=== PATIENT | female | born 1970 | race African-American/Black ===

== ENCOUNTER 2019-03-12 13:48 | Emergency (ER) | payer MEDICARE ==
[2019-03-12 14:24] VITALS: BP 125/81
--- NOTE | 2019-03-12 14:36 | ER Document Report ---
ED Medical Screen (RME) - General Chief Complaint: Nausea/Vomiting Stated Complaint: NAUSEA Time Seen by Provider: 03/12/19 14:35 Primary Care Provider: ED [facility] [Primary Care Provider] - Follow up as needed Mode of Arrival: Wheelchair Information source: Patient Notes: 48-year-old female presented to ED for complaint of headache and abdominal pain level 5 out of 5 with nausea and vomiting. She states she has had the symptoms for 3 days she vomited once today and twice yesterday. She states she has a history of diabetes blood pressure cholesterol seizures reflux and migraines. Patient is alert oriented respirations regular and unlabored speaking in full sentences. She states she does smoke half pack a day and also has a card for medical marijuana which she uses. I have greeted and performed a rapid initial assessment of this patient. A comprehensive ED assessment and evaluation of the patient, analysis of test results and completion of medical decision making process will be conducted by an additional ED providers. Dictation of this chart was performed using voice recognition software; therefore, there may be some unintended grammatical errors. TRAVEL OUTSIDE OF THE [place] IN LAST 30 DAYS: No - Related Data Allergies/Adverse Reactions: peanut Allergy (Verified 03/12/19 13:55) oxycodone HCl [From Percocet] Adverse Reaction (Mild, Verified 03/12/19 13:55) Past Medical History - Past Medical History Cardiac Medical History: Reports: Hx Hypertension Neurological Medical History: Reports: Hx Migraine Past Surgical History: Reports: Hx Section - x2, Hx Cholecystectomy, Hx Hysterectomy - Immunizations Hx Diphtheria, Pertussis, Tetanus Vaccination: Yes Physical Exam - Vital signs Vitals: Temp Pulse Resp BP Pulse Ox 98.6 F 103 H 16 125/81 98 03/12/19 14:17 03/12/19 14:17 03/12/19 14:17 03/12/19 14:17 03/12/19 14:17 Course - Vital Signs Vital signs: Temp Pulse Resp BP Pulse Ox 98.6 F 103 H 16 125/81 98 03/12/19 14:17 03/12/19 14:17 03/12/19 14:17 03/12/19 14:17 03/12/19 14:17 Doctor's Discharge - Discharge Referrals: ED PAL[facility] [Primary Care Provider] - Follow up as needed
[2019-03-12] MEDS ORDERED: NORMAL SALINE 1000 ML 1,000 ML IV ONE (14:37)
[2019-03-12] MEDS ORDERED: ONDANSETRON HCL INJ/PF 4 MG/2 ML SDV IV ONE (14:37)
[2019-03-12 14:58] LABS: ABSOLUTE LYMPHOCYTES (AUTO) 2.2 10^3/uL (0.5-4.7); ABSOLUTE MONOCYTES (AUTO) 0.5 10^3/uL (0.1-1.4); ABSOLUTE NEUT (AUTO) 4.5 10^3/uL (1.7-8.2); BASOPHILS % (AUTO) 0.6 % (0-2); EOSINOPHILS % (AUTO) 0.4 % (0-6); HEMATOCRIT 43.9 % (36.0-47.0); HEMOGLOBIN 14.3 g/dL (12.0-15.5); LYMPHOCYTES % (AUTO) 30.7 % (13-45); MEAN CORPUSCULAR HEMOGLOBIN 27.5 pg (27.0-33.4); MEAN CORPUSCULAR HGB CONC 32.5 g/dL (32.0-36.0); MEAN CORPUSCULAR VOLUME 85 fl (80-97); MONOCYTES % (AUTO) 6.3 % (3-13); PLATELET COUNT 237 10^3/uL (150-450); RED BLOOD COUNT 5.18 10^6/uL (3.72-5.28); RED CELL DISTRIBUTION WIDTH 13.3 % (11.5-14.0); TOTAL CELLS COUNTED % (AUTO) 100 %; WHITE BLOOD COUNT 7.3 10^3/uL (4.0-10.5)
[2019-03-12 15:07] LABS: ALANINE AMINOTRANSFERASE 18 U/L (9-52); ALBUMIN 4.5 g/dL (3.5-5.0); ALKALINE PHOSPHATASE 118 U/L (38-126); ANION GAP 17 (5-19); ASPARTATE AMINO TRANSFERASE 18 U/L (14-36); BILIRUBIN,DIRECT 0.5 mg/dL (0.0-0.4); BILIRUBIN,TOTAL 0.7 mg/dL (0.2-1.3); BLOOD UREA NITROGEN 9 mg/dL (7-20); CALCIUM 9.7 mg/dL (8.4-10.2); CARBON DIOXIDE 21 mmol/L (22-30); CHLORIDE 91 mmol/L (98-107); LIPASE 45.1 U/L (23-300); POTASSIUM 4.8 mmol/L (3.6-5.0); SODIUM 128.7 mmol/L (137-145); TOTAL PROTEIN 7.4 g/dL (6.3-8.2)
[2019-03-12 15:16] LABS: GLUCOSE 421 mg/dL (75-110)
[2019-03-12 15:35] LABS: VENOUS BLOOD BASE EXCESS -2.7 mmol/L; VENOUS BLOOD HCO3 22.8 mmol/L (20-32); VENOUS BLOOD PCO2 41.8 mmHg (35-63); VENOUS BLOOD PH 7.35 (7.30-7.42)
[2019-03-12 15:42] LABS: APPEARANCE,URINE CLEAR; BILIRUBIN,URINE NEGATIVE (NEGATIVE); COLOR,URINE YELLOW; GLUCOSE, URINE >=500 mg/dL (NEGATIVE); KETONES,URINE 80 mg/dL (NEGATIVE); LEUKOCYTE ESTERASE,URINE NEGATIVE (NEGATIVE); NITRITE,URINE NEGATIVE (NEGATIVE); PROTEIN,URINE NEGATIVE (NEGATIVE); URINE SPECIFIC GRAVITY 1.033; UROBILINOGEN,URINE NEGATIVE mg/dL (<2.0)
[2019-03-12] MEDS ORDERED: ONDANSETRON ODT 4 MG TAB (6 TAB/ER DISP) PO PRN (20:13)
--- NOTE | 2019-03-12 20:17 | ER Document Report ---
Addendum entered and electronically signed by ELVIRA STYLES PA 03/13/19 06:03: Physical Exam - Vital signs Vitals: Temp Pulse Resp BP Pulse Ox 98.6 F 103 H 16 125/81 98 03/12/19 14:17 03/12/19 14:17 03/12/19 14:17 03/12/19 14:17 03/12/19 14:17 - Notes Notes: GENERAL: Thin but well appearing. HEAD: Normocephalic, atraumatic. EYES: Pupils equal, round, and reactive to light. Extraocular movements intact. ENT: Oral mucosa moist, tongue midline. Oropharynx unremarkable. Airway patent. NECK: Full range of motion. Supple. Trachea midline. LUNGS: Clear to auscultation bilaterally, no wheezes, rales, or rhonchi. No respiratory distress. HEART: Regular rate and rhythm. No murmur ABDOMEN: Soft, non-tender. Non-distended. Bowel sounds present in all 4 quadrants. GENITOURINARY: Deferred EXTREMITIES: Moves all 4 extremities spontaneously. No edema, normal radial and dorsalis pedis pulses bilaterally. No cyanosis. BACK: no cervical, thoracic, lumbar midline tenderness. No saddle anesthesia, normal distal neurovascular exam. Moves all extremities in full range of motion. NEUROLOGICAL: Alert and oriented x3. Normal speech. Cranial nerves II through XII grossly intact. PSYCH: Normal affect, normal mood. SKIN: Warm, dry, normal turgor. No rashes or lesions noted. A lot of sagging skin. Original Note: ED General - General Chief Complaint: Nausea/Vomiting Stated Complaint: NAUSEA Time Seen by Provider: 03/12/19 14:35 Primary Care Provider: ED PALUMBO [NO LOCAL MD] - Follow up as needed Mode of Arrival: Wheelchair Notes: Patient is a 48-year-old female that comes to the emergency department with chief complaint of nausea, vomiting, dehydration, abdominal pain. She denies fever, diarrhea, flank pain, chest pain, current headache. She states she has had trouble with vomiting over the past 3 days, vomited once today, twice yesterday. She states she has a frequent problem with vomiting. She reports a history of Type II diabetes, HLD, seizures, GERD, and uses PRN medical marijuana reportedly. She smokes. She has a history of cholecystectomy and hysterectomy. TRAVEL OUTSIDE OF THE [place] IN LAST 30 DAYS: No - Related Data Allergies/Adverse Reactions: peanut Allergy (Verified 03/12/19 13:55) oxycodone HCl [From Percocet] Adverse Reaction (Mild, Verified 03/12/19 13:55) Past Medical History - General Information source: Patient - Social History Smoking Status: Current Every Day Smoker Chew tobacco use (# tins/day): No Frequency of alcohol use: None Drug Abuse: Marijuana Lives with: Family Family History: Reviewed & Not Pertinent Patient has suicidal ideation: No Patient has homicidal ideation: No - Past Medical History Cardiac Medical History: Reports: Hx Hypercholesterolemia, Hx Hypertension Neurological Medical History: Reports: Hx Migraine Endocrine Medical History: Reports: Hx Diabetes Mellitus Type 2 Renal/ Medical History: Denies: Hx Peritoneal Dialysis GI Medical History: Reports: Hx Gastroesophageal Reflux Disease Past Surgical History: Reports: Hx Section - x2, Hx Cholecystectomy, Hx Hysterectomy - Immunizations Hx Diphtheria, Pertussis, Tetanus Vaccination: Yes Review of Systems - Review of Systems Constitutional: See HPI EENT: No symptoms reported Cardiovascular: No symptoms reported Respiratory: No symptoms reported Gastrointestinal: See HPI Genitourinary: No symptoms reported Female Genitourinary: No symptoms reported Musculoskeletal: No symptoms reported Skin: No symptoms reported Hematologic/Lymphatic: No symptoms reported Neurological/Psychological: No symptoms reported Physical Exam - Vital signs Vitals: Temp Pulse Resp BP Pulse Ox 98.6 F 103 H 16 125/81 98 03/12/19 14:17 03/12/19 14:17 03/12/19 14:17 03/12/19 14:17 03/12/19 14:17 - Notes Notes: Patient is very thin although she has sagging skin suggesting a lot of weight loss. She states that she has indeed lost a ton of weight but still is a diabetic. She states she is a type II diabetic. She has a nontender abdomen, she states she has been drinking fluids since she got here a few hours ago and received IV fluids. She states she feels great and she wants to leave. Course - Re-evaluation Re-evalutation: Patient is very thin although she has sagging skin suggesting a lot of weight loss. She states that she has indeed lost a ton of weight but still is a diabetic. She states she is a type II diabetic. She has a nontender abdomen, she states she has been drinking fluids since she got here a few hours ago and received IV fluids. She states she feels great and she wants to leave. CBC is unremarkable. Chemistry shows hyperglycemia with borderline bicarbonate, urinalysis shows ketones and elevated specific gravity, however the venous blood gas is normal. Somewhat borderline presentation overall. Sodium corrects to 136.4. She is not tachycardic or ill appearing. I recommended additional IV fluids and possibly even chemistry recheck but patient declines. She states she feels excellent, she is ready to leave, requests nausea medication and discharge. I did discuss her extreme weight loss and the concerns associated with this, she states she is following with outpatient providers, she states they have been aware of this, she states that she will follow-up and return if she worsens in any way. - Vital Signs Vital signs: Temp Pulse Resp BP Pulse Ox 98.6 F 103 H 16 125/81 98 03/12/19 14:17 03/12/19 14:17 03/12/19 14:17 03/12/19 14:17 03/12/19 14:17 - Laboratory Result Diagrams: 03/12/19 12:56 03/12/19 12:56 Laboratory results interpreted by me: 03/12/19 03/12/19 03/12/19 12:56 14:57 15:17 Sodium 128.7 L Chloride 91 L Carbon Dioxide 21 L Creatinine 0.32 L Glucose 421 H* POC Glucose 283 H Direct Bilirubin 0.5 H Urine Glucose (UA) >=500 H Urine Ketones 80 H Discharge - Discharge Clinical Impression: Dehydration Vomiting Qualifiers: Vomiting type: unspecified Vomiting Intractability: non-intractable Nausea presence: with nausea Qualified Code(s): R11.2 - Nausea with vomiting, unspecified Abdominal pain Qualifiers: Abdominal location: generalized Qualified Code(s): R10.84 - Generalized abdominal pain Condition: Stable Disposition: HOME, SELF-CARE Additional Instructions: Continue to rehydrate at home. Take the nausea medication as prescribed, the famotidine can help recovery as well, start with bland food. Follow-up with primary care. Return if you worsen including returned vomiting, returned abdominal pain, fever/chills, or if something is not right. Prescriptions: Promethazine HCl [Phenergan 25 mg Tablet] 25 mg PO Q6H PRN #15 tablet PRN Reason: Referrals: LOCALMN,NO [NO LOCAL MD] - Follow up as needed
== END 2019-03-12 20:33 | disposition home or self-care (01) ==
LOC: ER 13:48
DX: E86.0 Dehydration (principal); R11.2 Nausea with vomiting, unspecified; R10.84 Generalized abdominal pain; F17.200 Nicotine dependence, unspecified, uncomplicated; E78.00 Pure hypercholesterolemia, unspecified; I10 Essential (primary) hypertension; E11.9 Type 2 diabetes mellitus without complications; Z88.6 Allergy status to analgesic agent; Z91.010 Allergy to peanuts; Z90.49 Acquired absence of other specified parts of digestive tract; Z90.710 Acquired absence of both cervix and uterus
CPT/HCPCS: 99283; 96361; 96374; 36415; 82962; 83690; 84703; 85025; 80053; 81001; 82803; J2405; J7030; A9270

== ENCOUNTER 2019-03-16 23:38 | Emergency (ER) | payer MEDICARE ==
--- NOTE | 2019-03-16 23:48 | ER Document Report ---
Addendum entered and electronically signed by DEANA BRISENO MD 03/17/19 17:55: Discharge - Discharge Clinical Impression: Hyperglycemia, Dehydration, Hyponatremia, Hypokalemia, Homicidal ideation Condition: Stable Disposition: HOME, SELF-CARE Additional Instructions: You have been evaluated both medical and behavioral health teams and been deemed appropriate for discharge. You are encouraged to follow-up with your outpatient mental health provider upon returning home to [place]. You are encouraged to follow mental health recommendations by your mental health team. DEPRESSION: Your evaluation reveals that you have mental depression. While symptoms may be vague, they often include disturbance of sleep, fatigue, loss of appetite, and general loss of interest in life. While depression may be a side effect of drugs, or a reaction to a major change in your life, many cases have no known cause. If depression is acute, and related to a major loss in your life, you can expect it to clear completely with time. If you have been depressed a long time, are prone to repeated bouts of depression or low mood, or have been thinking of suicide, get help. Depression can be treated with anti-depressant medication and counselling. Long-term depression will often take a few weeks to clear, even with appropriate medication. Follow-up care is important. HOMICIDAL IDEATION: Suicidal ideation is a common medical term for thoughts about harming others, which may be as detailed as a formulated plan, without the act itself. Although most people who experience homicidal ideation do not commit acts of harm to others, some go on to make attempts. The range of homicidal ideation varies greatly from fleeting to detailed planning, role playing, and unsuccessful attempts. Based upon your evaluation and discussion with you, we do not believe you are currently at risk to act upon your thoughts of side. You have agreed to return to the Emergency Department, at any time, if you feel inclined to act upon your homicidal thoughts. FOLLOW-UP CARE: If you have been referred to a physician for follow-up care, call the physicians office for an appointment as you were instructed or within the next two days. If you experience worsening or a significant change in your symptoms, notify the physician immediately or return to the Emergency Department at any time for re-evaluation. Patient says that her [id number] going to pick her up here tonight and they are driving back to [place] where she can get her insulin. Referrals: [facility] [Outside] - Follow up as needed Addendum entered and electronically signed by TODD BUTTERFIELD LCSWA 03/17/19 15:44: Discharge - Discharge Clinical Impression: Hyperglycemia, Dehydration, Hyponatremia, Hypokalemia, Homicidal ideation Condition: Stable Disposition: HOME, SELF-CARE Additional Instructions: You have been evaluated both medical and behavioral health teams and been deemed appropriate for discharge. You are encouraged to follow-up with your outpatient mental health provider upon returning home to [place]. You are encouraged to follow mental health recommendations by your mental health team. DEPRESSION: Your evaluation reveals that you have mental depression. While symptoms may be vague, they often include disturbance of sleep, fatigue, loss of appetite, and general loss of interest in life. While depression may be a side effect of drugs, or a reaction to a major change in your life, many cases have no known cause. If depression is acute, and related to a major loss in your life, you can expect it to clear completely with time. If you have been depressed a long time, are prone to repeated bouts of depression or low mood, or have been thinking of suicide, get help. Depression can be treated with anti-depressant medication and counselling. Long-term depression will often take a few weeks to clear, even with appropriate medication. Follow-up care is important. HOMICIDAL IDEATION: Suicidal ideation is a common medical term for thoughts about harming others, which may be as detailed as a formulated plan, without the act itself. Although most people who experience homicidal ideation do not commit acts of harm to others, some go on to make attempts. The range of homicidal ideation varies greatly from fleeting to detailed planning, role playing, and unsuccessful attempts. Based upon your evaluation and discussion with you, we do not believe you are currently at risk to act upon your thoughts of side. You have agreed to return to the Emergency Department, at any time, if you feel inclined to act upon your homicidal thoughts. FOLLOW-UP CARE: If you have been referred to a physician for follow-up care, call the physicians office for an appointment as you were instructed or within the next two days. If you experience worsening or a significant change in your symptoms, notify the physician immediately or return to the Emergency Department at any time for re-evaluation. Referrals: [facility] [Outside] - Follow up as needed Original Note: ED General - General Stated Complaint: PSYCH ISSUES Time Seen by Provider: 03/16/19 23:47 Notes: Patient is a 48-year-old female with diabetes mellitus that presents to the emergency department for chief complaint of homicidal ideations and hearing voices. Patient apparently has been living with her son, after coming down here for about a month, she apparently states that she wants to kill her son, and thinks she may hurt her grandchildren. She states she came down here to help her son with the grandchildren about a month ago. She has not had her insulin since then, they forgot to bring it. She has been on long-acting insulin, as well as sliding scale insulin with meals. She denies any suicidal ideations, denies any visual hallucinations. At this time she had some mild nausea but denies having any headache, chest pain, shortness of breath or difficulty breathing. She states that she did not eat all day long, because her son has not been feeding her. Past Medical History: Diabetes mellitus, hypertension, bipolar disorder, seizure disorder Past Surgical History: , cholecystectomy Social History: Admits to smoking cigarettes, denies alcohol or drug use. Family History: Reviewed and noncontributory for presenting illness Allergies: Reviewed, see documented allergy list. REVIEW OF SYSTEMS: Other than noted above, the 12 point review of systems was reviewed with the patient and were negative, all pertinent findings are included in the HPI. PHYSICAL EXAMINATION: Vital signs reviewed, nursing noted reviewed. GENERAL: Patient appears mildly dehydrated, no acute distress, but is mildly agitated HEAD: Atraumatic, normocephalic. EYES: Eyes appear normal, extraocular movements intact, sclera anicteric, conjunctiva are normal. ENT: nares patent, oropharynx clear without exudates. Moist mucous membranes. NECK: Normal range of motion, supple without lymphadenopathy LUNGS: Breath sounds clear to auscultation bilaterally and equal. No wheezes rales or rhonchi. HEART: Heart rate mildly tachycardic, regular rhythm, no audible murmur. ABDOMEN: Soft, nontender, normoactive bowel sounds. No rebound, guarding, or rigidity. No masses appreciated. EXTREMITIES: Nontender, good range of motion, no pitting or edema. NEUROLOGICAL: No focal neurological deficits. Moves all extremities spontaneously Motor and sensory grossly intact on exam. PSYCH: Patient is agitated on exam, appears annoyed, with her son, but she is answering questions appropriately, is having auditory hallucinations and hearing voices. SKIN: Warm, Dry, normal turgor, no rashes or lesions noted on exposed skin TRAVEL OUTSIDE OF THE [place] IN LAST 30 DAYS: No - Related Data Allergies/Adverse Reactions: peanut Allergy (Verified 03/12/19 13:55) oxycodone HCl [From Percocet] Adverse Reaction (Mild, Verified 03/12/19 13:55) Past Medical History - Social History Smoking Status: Current Every Day Smoker Family History: Reviewed & Not Pertinent - Past Medical History Cardiac Medical History: Reports: Hx Hypercholesterolemia, Hx Hypertension Neurological Medical History: Reports: Hx Migraine Endocrine Medical History: Reports: Hx Diabetes Mellitus Type 2 Renal/ Medical History: Denies: Hx Peritoneal Dialysis GI Medical History: Reports: Hx Gastroesophageal Reflux Disease Past Surgical History: Reports: Hx Section - x2, Hx Cholecystectomy, Hx Hysterectomy - Immunizations Hx Diphtheria, Pertussis, Tetanus Vaccination: Yes Physical Exam - Vital signs Vitals: Temp Pulse Resp BP Pulse Ox 98.5 F 106 H 19 133/79 H 96 03/17/19 00:34 03/17/19 00:34 03/17/19 00:34 03/17/19 00:34 03/17/19 00:34 Course - Re-evaluation Re-evalutation: Patient seen and examined vital signs reviewed. Laboratory data and/or imaging were ordered as appropriate for the patient's presenting symptoms and complaint, with consideration of any critical or life threatening conditions that may be associated with their obtained history and exam as noted above. Patient was treated with IV fluids, 2 L, her glucose was elevated, greater than 400, she had a borderline anion gap, and low bicarb, was restarted on IV insulin given 6 units, and started on a long-acting Lantus, 30 units, she states she was on 40 units of the long-acting previously. After treatment, the patient's BMP was repeated, anion gap completely closed, potassium was somewhat lower at 3.1, given replacement, at this point I feel the patient is medically cleared, to be seen for psychiatric evaluation for her homicidal ideation and hearing voices, she apparently lives in [place] previously to coming down here in January, and would like to return there. The patient was re-evaluated and was stable and much improved. Evaluation was most consistent with hyperglycemia, uncontrolled diabetes mellitus, homicidal ideation, and auditory hallucinations *Note is created using voice recognition software and may contain spelling, syntax or grammatical errors. Laboratory 03/16/19 03/16/19 03/16/19 23:20 23:20 23:45 WBC 8.6 RBC 4.77 Hgb 13.3 Hct 40.7 MCV 86 MCH 27.8 MCHC 32.5 RDW 13.3 Plt Count 251 Seg Neutrophils % 60.0 Lymphocytes % 32.6 Monocytes % 6.3 Eosinophils % 0.8 Basophils % 0.3 Absolute Neutrophils 5.1 Absolute Lymphocytes 2.8 Absolute Monocytes 0.5 Absolute Eosinophils 0.1 Absolute Basophils 0.0 VBG pH 7.34 VBG pCO2 39.3 VBG HCO3 20.7 VBG Base Excess -4.6 Sodium 128.6 L Potassium 3.6 Chloride 90 L Carbon Dioxide 20 L Anion Gap 19 BUN 8 Creatinine 0.48 L Est GFR ( Amer) > 60 Est GFR (Non-Af Amer) > 60 Glucose 524 H* POC Glucose Calcium 9.7 Total Bilirubin 0.9 Direct Bilirubin 0.5 H Neonat Total Bilirubin Not Reportable Neonat Direct Bilirubin Not Reportable Neonat Indirect Bili Not Reportable AST 14 ALT 17 Alkaline Phosphatase 107 Total Protein 6.8 Albumin 4.3 Urine Color Urine Appearance Urine pH Ur Specific [place] Urine Protein Urine Glucose (UA) Urine Ketones Urine Blood Urine Nitrite Urine Bilirubin Urine Urobilinogen Ur Leukocyte Esterase Urine WBC (Auto) Urine RBC (Auto) U Hyaline Cast (Auto) Squamous Epi Cells Auto Urine Mucus (Auto) Urine Ascorbic Acid Salicylates < 1.0 L Urine Opiates Screen Urine Methadone Screen Acetaminophen < 10 L Ur Barbiturates Screen Ur Phencyclidine Scrn Ur Amphetamines Screen U Benzodiazepines Scrn Urine Cocaine Screen U Marijuana (THC) Screen Serum Alcohol < 10 03/17/19 03/17/19 03/17/19 00:06 00:06 03:29 WBC RBC Hgb Hct MCV MCH MCHC RDW Plt Count Seg Neutrophils % Lymphocytes % Monocytes % Eosinophils % Basophils % Absolute Neutrophils Absolute Lymphocytes Absolute Monocytes Absolute Eosinophils Absolute Basophils VBG pH VBG pCO2 VBG HCO3 VBG Base Excess Sodium Potassium Chloride Carbon Dioxide Anion Gap BUN Creatinine Est GFR ( Amer) Est GFR (Non-Af Amer) Glucose POC Glucose 279 H Calcium Total Bilirubin Direct Bilirubin Neonat Total Bilirubin Neonat Direct Bilirubin Neonat Indirect Bili AST ALT Alkaline Phosphatase Total Protein Albumin Urine Color YELLOW Urine Appearance SLIGHTLY-CLOUDY Urine pH 7.0 Ur Specific [place] 1.015 Urine Protein 30 H Urine Glucose (UA) >=500 H Urine Ketones 80 H Urine Blood NEGATIVE Urine Nitrite NEGATIVE Urine Bilirubin NEGATIVE Urine Urobilinogen NEGATIVE Ur Leukocyte Esterase NEGATIVE Urine WBC (Auto) 5 Urine RBC (Auto) 1 U Hyaline Cast (Auto) 14 Squamous Epi Cells Auto 2 Urine Mucus (Auto) RARE Urine Ascorbic Acid NEGATIVE Salicylates Urine Opiates Screen NEGATIVE Urine Methadone Screen NEGATIVE Acetaminophen Ur Barbiturates Screen NEGATIVE Ur Phencyclidine Scrn NEGATIVE Ur Amphetamines Screen NEGATIVE U Benzodiazepines Scrn NEGATIVE Urine Cocaine Screen NEGATIVE U Marijuana (THC) Screen UNCONFIRMED POSITIVE Serum Alcohol 03/17/19 03:40 WBC RBC Hgb Hct MCV MCH MCHC RDW Plt Count Seg Neutrophils % Lymphocytes % Monocytes % Eosinophils % Basophils % Absolute Neutrophils Absolute Lymphocytes Absolute Monocytes Absolute Eosinophils Absolute Basophils VBG pH VBG pCO2 VBG HCO3 VBG Base Excess Sodium 134.8 L Potassium 3.1 L Chloride 99 Carbon Dioxide 28 Anion Gap 8 BUN 6 L Creatinine 0.33 L Est GFR ( Amer) > 60 Est GFR (Non-Af Amer) > 60 Glucose 232 H POC Glucose Calcium 8.7 Total Bilirubin Direct Bilirubin Neonat Total Bilirubin Neonat Direct Bilirubin Neonat Indirect Bili AST ALT Alkaline Phosphatase Total Protein Albumin Urine Color Urine Appearance Urine pH Ur Specific [place] Urine Protein Urine Glucose (UA) Urine Ketones Urine Blood Urine Nitrite Urine Bilirubin Urine Urobilinogen Ur Leukocyte Esterase Urine WBC (Auto) Urine RBC (Auto) U Hyaline Cast (Auto) Squamous Epi Cells Auto Urine Mucus (Auto) Urine Ascorbic Acid Salicylates Urine Opiates Screen Urine Methadone Screen Acetaminophen Ur Barbiturates Screen Ur Phencyclidine Scrn Ur Amphetamines Screen U Benzodiazepines Scrn Urine Cocaine Screen U Marijuana (THC) Screen Serum Alcohol - Vital Signs Vital signs: Temp Pulse Resp BP Pulse Ox 98.5 F 106 H 19 133/79 H 96 03/17/19 00:34 03/17/19 00:34 03/17/19 00:34 03/17/19 00:34 03/17/19 00:34 - Laboratory Result Diagrams: 03/16/19 23:20 03/17/19 03:40 Laboratory results interpreted by me: 03/16/19 03/17/19 03/17/19 23:20 00:06 03:29 Sodium 128.6 L Potassium Chloride 90 L Carbon Dioxide 20 L BUN Creatinine 0.48 L Glucose 524 H* POC Glucose 279 H Direct Bilirubin 0.5 H Urine Protein 30 H Urine Glucose (UA) >=500 H Urine Ketones 80 H Salicylates < 1.0 L Acetaminophen < 10 L 03/17/19 03:40 Sodium 134.8 L Potassium 3.1 L Chloride Carbon Dioxide BUN 6 L Creatinine 0.33 L Glucose 232 H POC Glucose Direct Bilirubin Urine Protein Urine Glucose (UA) Urine Ketones Salicylates Acetaminophen - EKG Interpretation by Me Additional EKG results interpreted by me: EKG demonstrates sinus tachycardia with a ventricular rate of 106 bpm, normal axis, QTC prolonged at 494 ms, T wave inversion noted in lead aVL, nonspecific, no evidence of acute ischemia in this EKG. No prior for comparison. Discharge - Discharge Clinical Impression: Hyperglycemia, Dehydration, Homicidal ideation, Hyponatremia, Hypokalemia Condition: Stable Disposition: PSYCH HOSP/UNIT
[2019-03-16 23:55] LABS: VENOUS BLOOD BASE EXCESS -4.6 mmol/L; VENOUS BLOOD HCO3 20.7 mmol/L (20-32); VENOUS BLOOD PCO2 39.3 mmHg (35-63); VENOUS BLOOD PH 7.34 (7.30-7.42)
[2019-03-16 23:57] LABS: ABSOLUTE EOSINOPHILS # (AUTO) 0.1 10^3/uL (0.0-0.6); ABSOLUTE LYMPHOCYTES (AUTO) 2.8 10^3/uL (0.5-4.7); ABSOLUTE MONOCYTES (AUTO) 0.5 10^3/uL (0.1-1.4); ABSOLUTE NEUT (AUTO) 5.1 10^3/uL (1.7-8.2); BASOPHILS % (AUTO) 0.3 % (0-2); EOSINOPHILS % (AUTO) 0.8 % (0-6); HEMATOCRIT 40.7 % (36.0-47.0); HEMOGLOBIN 13.3 g/dL (12.0-15.5); LYMPHOCYTES % (AUTO) 32.6 % (13-45); MEAN CORPUSCULAR HEMOGLOBIN 27.8 pg (27.0-33.4); MEAN CORPUSCULAR HGB CONC 32.5 g/dL (32.0-36.0); MEAN CORPUSCULAR VOLUME 86 fl (80-97); MONOCYTES % (AUTO) 6.3 % (3-13); PLATELET COUNT 251 10^3/uL (150-450); RED BLOOD COUNT 4.77 10^6/uL (3.72-5.28); RED CELL DISTRIBUTION WIDTH 13.3 % (11.5-14.0); TOTAL CELLS COUNTED % (AUTO) 100 %; WHITE BLOOD COUNT 8.6 10^3/uL (4.0-10.5)
[2019-03-17 00:15] LABS: ALANINE AMINOTRANSFERASE 17 U/L (9-52); ALBUMIN 4.3 g/dL (3.5-5.0); ALKALINE PHOSPHATASE 107 U/L (38-126); ASPARTATE AMINO TRANSFERASE 14 U/L (14-36); BILIRUBIN,DIRECT 0.5 mg/dL (0.0-0.4); BILIRUBIN,TOTAL 0.9 mg/dL (0.2-1.3); BLOOD UREA NITROGEN 8 mg/dL (7-20); CALCIUM 9.7 mg/dL (8.4-10.2); POTASSIUM 3.6 mmol/L (3.6-5.0); TOTAL PROTEIN 6.8 g/dL (6.3-8.2)
[2019-03-17 00:19] LABS: CARBON DIOXIDE 20 mmol/L (22-30); CHLORIDE 90 mmol/L (98-107); SODIUM 128.6 mmol/L (137-145)
[2019-03-17 00:21] LABS: ACETAMINOPHEN < 10 ug/mL (10-30); ALCOHOL < 10 mg/dL (NONE DETECTED); SALICYLATE < 1.0 mg/dL (2.0-20.0)
[2019-03-17 00:22] LABS: ANION GAP 19 (5-19)
[2019-03-17 00:23] LABS: GLUCOSE 524 mg/dL (75-110)
[2019-03-17 00:31] LABS: APPEARANCE,URINE SLIGHTLY-CLOUDY; BILIRUBIN,URINE NEGATIVE (NEGATIVE); COLOR,URINE YELLOW; GLUCOSE, URINE >=500 mg/dL (NEGATIVE); KETONES,URINE 80 mg/dL (NEGATIVE); LEUKOCYTE ESTERASE,URINE NEGATIVE (NEGATIVE); NITRITE,URINE NEGATIVE (NEGATIVE); PROTEIN,URINE 30 mg/dL (NEGATIVE); URINE SPECIFIC GRAVITY 1.015; UROBILINOGEN,URINE NEGATIVE mg/dL (<2.0)
[2019-03-17 00:41] LABS: URINE AMPHETAMINES SCREEN NEGATIVE; URINE BARBITURATES SCREEN NEGATIVE; URINE BENZODIAZEPINES SCREEN NEGATIVE; URINE METHADONE SCREEN NEGATIVE; URINE PHENCYCLIDINE SCREEN NEGATIVE
[2019-03-17 00:42] LABS: URINE MARIJUANA (THC) SCREEN UNCONFIRMED POSITIVE
[2019-03-17 00:43] LABS: URINE COCAINE SCREEN NEGATIVE
[2019-03-17] MEDS ORDERED: INSULIN REG, HUMAN 100 UNIT/ML 3 ML VIAL (PYX) IV ONE ×2 (00:44→02:03)
[2019-03-17] MEDS ORDERED: RINGERS SOLUTION,LACTATED 1,000 ML IV ONE ×2 (00:44→02:21)
[2019-03-17] MEDS ORDERED: INSULIN GLARGINE,HUM.REC.ANLOG 1,000 UNIT/10 ML VIAL SUBCUT ONE ×2 (00:45→02:03)
[2019-03-17] MEDS ORDERED: ONDANSETRON HCL INJ/PF 4 MG/2 ML SDV IV ONE (03:06)
[2019-03-17 04:10] LABS: ANION GAP 8 (5-19); BLOOD UREA NITROGEN 6 mg/dL (7-20); CALCIUM 8.7 mg/dL (8.4-10.2); CARBON DIOXIDE 28 mmol/L (22-30); CHLORIDE 99 mmol/L (98-107); GLUCOSE 232 mg/dL (75-110); POTASSIUM 3.1 mmol/L (3.6-5.0); SODIUM 134.8 mmol/L (137-145)
[2019-03-17] MEDS ORDERED: POTASSIUM CHLORIDE 10 MEQ CAPSULE.ER PO ONE (04:17)
--- NOTE | 2019-03-17 09:55 | ER Document Report ---
Doctor's Note Notes: 03/17/19 09:54 Rounds: Chart reviewed and patient interviewed. Patient says that she is been hearing voices and she is having homicidal thoughts towards her son. Patient traveled here from [place] about 3 or 4 weeks ago. She forgot to bring her insulin when she came here. Blood sugars have been running high. Lab studies showed blood sugars in the 400-500 range, but down to 200 after treatment. Potassium is low and patient is getting some potassium. Other labs show positive for marijuana. Vital signs are all normal. Patient appears to be medically stable for transfer or discharge. Tom Ramirez MD
--- NOTE | 2019-03-17 15:41 | PSYCHOLOGICAL NOTE ---
Psych Note - Psych Note Date seen by psych provider: 03/17/19 Time seen by psych provider: 09:30 Psych Note: Reason for Consult: Homicidal ideation Consent permissions: Patient's [id number], Lori Del Rio [phone] Patient is a 48-year-old female with diabetes mellitus that presents to the emergency department for chief complaint of homicidal ideations and hearing voices. Unspecified bipolar and related disorder per history provided by patient No medication recommendations at this time Impression\plan: Patient is cleared from acute psychiatric services. Patient is not demonstrating any behaviors of responding to internal stimuli i.e. organized and linear thought processes, good eye contact, and normal conversational speech. Patient disclosed that she came down to [facility] to assist her son during his time of visitation with his children. She reports discord between her and her son which resulted in her having thoughts of harming him; no plan means or intent. She disclosed that she has a history of violent tendencies and used the local resources to ensure everyone's safety. She disclosed that she is from [place] and has a mental health team there. She admits that the recommendation from the team was not to come down to [place], [place]; however, she felt that she needed to to help her son. Patient plans to return immediately to [place] upon discharge and confirms her [id number] is currently in route. This was confirmed by the behavioral health team and approximate ETA is 8-9 PM tonight. Patient is recommended to follow-up with her outpatient mental health provider in [place] and continue taking her home medications. Clinician conducted psychoeducation on the importance of following mental health recommendations. Dr. Gr was consulted to care management of this patient; attending physicians in agreement with recommendations and disposition.
--- NOTE | 2019-03-17 17:53 | EKG REPORT ---
SEVERITY:- ABNORMAL ECG - SINUS TACHYCARDIA LINN, CONSIDER BIATRIAL ABNORMALITIES BORDERLINE T ABNORMALITIES, ANT-LAT LEADS BORDERLINE PROLONGED QT INTERVAL : Confirmed by: Ezequiel Billingsley 17-Mar-2019 17:52:30
[2019-03-17] MEDS ORDERED: DEXTROSE 40% GEL 15 GM TUBE PO PRN (18:00)
[2019-03-17] MEDS ORDERED: DEXTROSE 40% GEL 15 GM TUBE X 2 PO PRN (18:00)
[2019-03-17] MEDS ORDERED: DEXTROSE 50%-WATER SYRINGE 25 GM/50 ML DOSE IV PRN (18:00)
[2019-03-17] MEDS ORDERED: DEXTROSE 50%-WATER SYRINGE 12.5 GM/25 ML DOSE IV PRN (18:00)
[2019-03-17] MEDS ORDERED: GLUCAGON,HUMAN RECOMB 1 MG INJ IM PRN (18:00)
[2019-03-17] MEDS ORDERED: INSULIN LISPRO 100 UNIT/ML 3 ML VIAL SUBCUT SCH (19:00)
[2019-03-18 01:48] VITALS: BP 168/100
== END 2019-03-17 21:30 | disposition home or self-care (01) ==
LOC: ER 23:38
DX: R45.850 Homicidal ideations (principal); E11.65 Type 2 diabetes mellitus with hyperglycemia; T38.3X6A Underdosing of insulin and oral hypoglycemic [antidiabetic] drugs, initial encounter; Z91.128 Patient's intentional underdosing of medication regimen for other reason; Z91.14 Patient's other noncompliance with medication regimen; E87.1 Hypo-osmolality and hyponatremia; E87.6 Hypokalemia; E86.0 Dehydration; R44.0 Auditory hallucinations; I10 Essential (primary) hypertension; R11.0 Nausea; F17.210 Nicotine dependence, cigarettes, uncomplicated; R00.0 Tachycardia, unspecified; Z91.010 Allergy to peanuts
CPT/HCPCS: 93005; 99285; 96361; 96374; 36415; 82962; 80307 ×4; 85025; 80048; 80053; 81001; 82803; 93010; A9270 ×4; J2405; J7120; J1815

== ENCOUNTER 2019-03-18 11:11 | Emergency (ER) | payer MEDICARE ==
[2019-03-18] MEDS ORDERED: NALOXONE HCL INJ/PF 0.4 MG/1 ML SDV ONE (11:23)
[2019-03-18] MEDS ORDERED: NALOXONE HCL INJ 2 MG/2 ML DISP.SYRIN ONE ×2 (11:27→11:33)
[2019-03-18] MEDS ORDERED: NORMAL SALINE 1000 ML 1,000 ML IV ONE (11:44)
--- NOTE | 2019-03-18 11:47 | ER Document Report ---
Addendum entered and electronically signed by DEANA BRISENO MD 03/18/19 14:30: Discharge - Discharge Clinical Impression: BEHAVIOURAL EVENT Hypotension Qualifiers: Hypotension type: other hypotension type Qualified Code(s): I95.89 - Other hypotension Condition: Stable Disposition: HOME, SELF-CARE Additional Instructions: You have been evaluated by both medical and behavioral health teams and been deemed appropriate for discharge. You are highly encouraged to follow-up with your outpatient mental health provider in [place] in therapeutic services such as DBT or CBT to help you interpret your environment, build positive coping skills, and understand your triggers. AT ANY TIME, IF YOUR SYMPTOMS CHANGE SIGNIFICANTLY OR WORSEN OR YOU DEVELOP NEW SYMPTOMS, RETURN TO THE EMERGENCY DEPARTMENT IMMEDIATELY FOR RE-EVALUATION. Referrals: [facility] [Outside] - Follow up as needed Addendum entered and electronically signed by TODD BUTTERFIELD LCSWA 03/18/19 14:23: Discharge - Discharge Clinical Impression: BEHAVIOURAL EVENT Hypotension Qualifiers: Hypotension type: other hypotension type Qualified Code(s): I95.89 - Other hypotension Clinical Impression: (Ruled Out): Altered mental status Condition: Stable Disposition: HOME, SELF-CARE Additional Instructions: You have been evaluated by both medical and behavioral health teams and been deemed appropriate for discharge. You are highly encouraged to follow-up with your outpatient mental health provider in [place] in therapeutic services such as DBT or CBT to help you interpret your environment, build positive coping skills, and understand your triggers. AT ANY TIME, IF YOUR SYMPTOMS CHANGE SIGNIFICANTLY OR WORSEN OR YOU DEVELOP NEW SYMPTOMS, RETURN TO THE EMERGENCY DEPARTMENT IMMEDIATELY FOR RE-EVALUATION. Referrals: [facility] [Outside] - Follow up as needed Original Note: ED General - General Stated Complaint: WEAKNESS Time Seen by Provider: 03/18/19 11:41 TRAVEL OUTSIDE OF THE [place] IN LAST 30 DAYS: No - HPI Notes: Patient is a 48-year-old female that presents to the emergency department for chief complaint of mental status change. Patient presented by EMS from her home. EMS states that she was sitting in the front seat of a police car about to be arrested for a felony warrant when she started to act abnormally. EMS called by police. EMS states she was awake and conversational when he presented to the scene but started to become more sleepy. [id number] glucose was 332. They states she had a blood pressure of 80s systolic initially which did normalize after 500 mL normal saline bolus prior to arrival. Patient was reportedly just discharged from this facility. She is somnolent and will only tell me that she remembers sitting in a car. She does not know why she is at the hospital and is providing minimal HPI. Per EMS there was no witnessed seizure or trauma. Past Medical History: Diabetes mellitus, hypertension, bipolar disorder, seizure disorder Past Surgical History: , cholecystectomy Social History: Admits to smoking cigarettes, denies alcohol or drug use. Family History: Reviewed and noncontributory for presenting illness Allergies: Reviewed, see documented allergy list. REVIEW OF SYSTEMS: Unable to obtain because of acuity of condition PHYSICAL EXAMINATION: Vital signs reviewed, nursing noted reviewed. GENERAL: Somnolent, thin HEAD: Atraumatic, normocephalic. EYES: 1+ pupils bilaterally minimally responsive to light, symmetric. extraocular movements intact, sclera anicteric, conjunctiva are normal. ENT: nares patent, oropharynx clear without exudates. Dry mucous membranes. NECK: Normal range of motion, supple without lymphadenopathy LUNGS: Bradypnic, shallow respirations, lung sounds clear to auscultation bilaterally HEART: Regular rate and rhythm without murmurs ABDOMEN: Soft, no apparent tenderness. No rebound, guarding, or rigidity. No masses appreciated. EXTREMITIES: Nontender, good range of motion, no pitting or edema. NEUROLOGICAL: GCS 14, moves all extremities spontaneously Motor and sensory grossly intact on exam. SKIN: Warm, Dry, normal turgor, no rashes or lesions noted on exposed skin - Related Data Allergies/Adverse Reactions: peanut Allergy (Verified 03/12/19 13:55) oxycodone HCl [From Percocet] Adverse Reaction (Mild, Verified 03/12/19 13:55) Past Medical History - Social History Smoking Status: Never Smoker Family History: Reviewed & Not Pertinent - Past Medical History Cardiac Medical History: Reports: Hx Hypercholesterolemia, Hx Hypertension Neurological Medical History: Reports: Hx Migraine Endocrine Medical History: Reports: Hx Diabetes Mellitus Type 2 Renal/ Medical History: Denies: Hx Peritoneal Dialysis GI Medical History: Reports: Hx Gastroesophageal Reflux Disease Past Surgical History: Reports: Hx Section - x2, Hx Cholecystectomy, Hx Hysterectomy - Immunizations Hx Diphtheria, Pertussis, Tetanus Vaccination: Yes Physical Exam - Vital signs Vitals: Resp Pulse Ox 16 96 03/18/19 11:19 03/18/19 11:19 Course - Re-evaluation Re-evalutation: 03/18/19 11:49 Patient was initially hypotensive but alert and oriented with EMS. During my conversation with her she became progressively more somnolent. Patient went from a GCS of 14 with a somnolent state not providing much HPI to a GCS of 11. She was responsive to painful stimuli with mumbled speech. Patient received 0.4 mg IV Narcan with no improvement, she was then given 2 mg IV Narcan and did appear to start to wake up, patient was given another 2 mg of IV Narcan is now back to how she presented initially with a GCS of 14. She now states she remembers being in the back of the ambulance but does not know why she is in the hospital. She is asking for a blanket and protecting her airway. Her EKG shows sinus rhythm with no STEMI. Patient does have a history of seizure disorder and Keppra level will be obtained, seizure precautions have been started. 03/18/19 12:54 Patient's lab work is unchanged from yesterday. She is still hyperglycemic without DKA. Patient has no acute infections. Her mental status has been fluctuating while she has been in the emergency room. She presented alert and then was more unresponsive and then became alert again. Patient's exam is now becoming inconsistent with structural process and I feel her altered mental status is psychogenic. At one point I tried to wake her with verbal stimuli and she did not respond, I then gently try tactile stimuli to her arm which she did not respond. When I placed my hand on her chest to attempt sternal rub she woke up immediately and was very alert. Patient seems to remember receiving sternal rub and did not desire to have that done again. After talking for a second she fell back asleep. I did wave ammonia in front of her nose and she woke up sayin g "what the hell is that that smells horrible". I have discussed her care with our psych team who is familiar with this patient. At this point I do feel her alteration in mental status is not consistent with seizure or postictal state given its fluctuations. She has not had any witnessed seizure activity. She is afebrile with no leukocytosis to suggest meningitis or encephalitis. After IV fluid bolus her hypotension is completely resolved. Patient at this point is cleared from a medical standpoint. She is requiring further psychiatric evaluation and should remain in the emergency room until she is cleared from psychiatry. Laboratory 03/18/19 03/18/19 03/18/19 11:35 11:35 11:44 WBC 6.8 RBC 4.31 Hgb 11.8 L Hct 36.0 MCV 83 MCH 27.4 MCHC 32.9 RDW 13.3 Plt Count 237 Seg Neutrophils % 58.7 Lymphocytes % 31.2 Monocytes % 7.7 Eosinophils % 1.8 Basophils % 0.6 Absolute Neutrophils 4.0 Absolute Lymphocytes 2.1 Absolute Monocytes 0.5 Absolute Eosinophils 0.1 Absolute Basophils 0.0 VBG pH VBG pCO2 VBG HCO3 VBG Base Excess Sodium Potassium Chloride Carbon Dioxide Anion Gap BUN Creatinine Est GFR ( Amer) Est GFR (Non-Af Amer) Glucose Calcium Total Bilirubin Direct Bilirubin Neonat Total Bilirubin Neonat Direct Bilirubin Neonat Indirect Bili AST ALT Alkaline Phosphatase Troponin I Total Protein Albumin Urine Color YELLOW Urine Appearance CLEAR Urine pH 6.0 Ur Specific Whitney 1.033 Urine Protein NEGATIVE Urine Glucose (UA) >=500 H Urine Ketones NEGATIVE Urine Blood NEGATIVE Urine Nitrite NEGATIVE Urine Bilirubin NEGATIVE Urine Urobilinogen NEGATIVE Ur Leukocyte Esterase NEGATIVE Urine WBC (Auto) 1 Urine RBC (Auto) 1 U Hyaline Cast (Auto) 4 Urine Mucus (Auto) RARE Urine Ascorbic Acid NEGATIVE Salicylates Urine Opiates Screen NEGATIVE Urine Methadone Screen NEGATIVE Acetaminophen Ur Barbiturates Screen NEGATIVE Ur Phencyclidine Scrn NEGATIVE Ur Amphetamines Screen NEGATIVE U Benzodiazepines Scrn NEGATIVE Urine Cocaine Screen NEGATIVE U Marijuana (THC) Screen UNCONFIRMED POSITIVE Serum Alcohol 03/18/19 03/18/19 03/18/19 11:44 11:44 11:44 WBC RBC Hgb Hct MCV MCH MCHC RDW Plt Count Seg Neutrophils % Lymphocytes % Monocytes % Eosinophils % Basophils % Absolute Neutrophils Absolute Lymphocytes Absolute Monocytes Absolute Eosinophils Absolute Basophils VBG pH 7.35 VBG pCO2 55.2 VBG HCO3 29.4 VBG Base Excess 2.6 Sodium 136.9 L Potassium 3.5 L Chloride 102 Carbon Dioxide 30 Anion Gap 5 BUN 5 L Creatinine 0.27 L Est GFR ( Amer) > 60 Est GFR (Non-Af Amer) > 60 Glucose 319 H Calcium 9.1 Total Bilirubin 0.2 Direct Bilirubin 0.2 Neonat Total Bilirubin Not Reportable Neonat Direct Bilirubin Not Reportable Neonat Indirect Bili Not Reportable AST 10 L ALT 17 Alkaline Phosphatase 75 Troponin I < 0.012 Total Protein 5.3 L Albumin 3.0 L Urine Color Urine Appearance Urine pH Ur Specific Whitney Urine Protein Urine Glucose (UA) Urine Ketones Urine Blood Urine Nitrite Urine Bilirubin Urine Urobilinogen Ur Leukocyte Esterase Urine WBC (Auto) Urine RBC (Auto) U Hyaline Cast (Auto) Urine Mucus (Auto) Urine Ascorbic Acid Salicylates < 1.0 L Urine Opiates Screen Urine Methadone Screen Acetaminophen < 10 L Ur Barbiturates Screen Ur Phencyclidine Scrn Ur Amphetamines Screen U Benzodiazepines Scrn Urine Cocaine Screen U Marijuana (THC) Screen Serum Alcohol < [address] 03/18/19 11:42 IMPRESSION: No acute findings EVIDENCE OF ACUTE STROKE: NO. 03/18/19 12:59 - Vital Signs Vital signs: Temp Pulse Resp BP Pulse Ox 97.6 F 20 125/80 94 03/18/19 11:20 03/18/19 11:24 03/18/19 11:24 03/18/19 11:24 - Laboratory Result Diagrams: 03/18/19 11:44 03/18/19 11:44 Laboratory results interpreted by me: 03/18/19 03/18/19 03/18/19 11:35 11:44 11:44 Hgb 11.8 L Sodium 136.9 L Potassium 3.5 L BUN 5 L Creatinine 0.27 L Glucose 319 H AST 10 L Total Protein 5.3 L Albumin 3.0 L Urine Glucose (UA) >=500 H Salicylates < 1.0 L Acetaminophen < 10 L - EKG Interpretation by Me Additional EKG results interpreted by me: 03/18/19 12:39 Interpreted by myself 1131: Normal sinus rhythm, rate 87, normal axis, no ectopy, prolonged QT Discharge - Discharge Clinical Impression: Hypotension Qualifiers: Hypotension type: other hypotension type Qualified Code(s): I95.89 - Other hypotension Altered mental status Qualifiers: Altered mental status type: somnolence Qualified Code(s): R40.0 - Somnolence Condition: Stable Disposition: PSYCH HOSP/UNIT
[2019-03-18 11:52] LABS: APPEARANCE,URINE CLEAR; BILIRUBIN,URINE NEGATIVE (NEGATIVE); COLOR,URINE YELLOW; GLUCOSE, URINE >=500 mg/dL (NEGATIVE); KETONES,URINE NEGATIVE (NEGATIVE); LEUKOCYTE ESTERASE,URINE NEGATIVE (NEGATIVE); NITRITE,URINE NEGATIVE (NEGATIVE); PROTEIN,URINE NEGATIVE (NEGATIVE); URINE SPECIFIC GRAVITY 1.033; UROBILINOGEN,URINE NEGATIVE mg/dL (<2.0)
[2019-03-18 12:04] LABS: VENOUS BLOOD BASE EXCESS 2.6 mmol/L; VENOUS BLOOD HCO3 29.4 mmol/L (20-32); VENOUS BLOOD PCO2 55.2 mmHg (35-63); VENOUS BLOOD PH 7.35 (7.30-7.42)
[2019-03-18 12:05] LABS: ABSOLUTE EOSINOPHILS # (AUTO) 0.1 10^3/uL (0.0-0.6); ABSOLUTE LYMPHOCYTES (AUTO) 2.1 10^3/uL (0.5-4.7); ABSOLUTE MONOCYTES (AUTO) 0.5 10^3/uL (0.1-1.4); BASOPHILS % (AUTO) 0.6 % (0-2); EOSINOPHILS % (AUTO) 1.8 % (0-6); HEMOGLOBIN 11.8 g/dL (12.0-15.5); LYMPHOCYTES % (AUTO) 31.2 % (13-45); MEAN CORPUSCULAR HEMOGLOBIN 27.4 pg (27.0-33.4); MEAN CORPUSCULAR HGB CONC 32.9 g/dL (32.0-36.0); MEAN CORPUSCULAR VOLUME 83 fl (80-97); MONOCYTES % (AUTO) 7.7 % (3-13); PLATELET COUNT 237 10^3/uL (150-450); RED BLOOD COUNT 4.31 10^6/uL (3.72-5.28); RED CELL DISTRIBUTION WIDTH 13.3 % (11.5-14.0); SEGMENTED NEUTROPHILS % (AUTO) 58.7 % (42-78); TOTAL CELLS COUNTED % (AUTO) 100 %; WHITE BLOOD COUNT 6.8 10^3/uL (4.0-10.5)
[2019-03-18 12:12] LABS: URINE AMPHETAMINES SCREEN NEGATIVE; URINE BARBITURATES SCREEN NEGATIVE; URINE BENZODIAZEPINES SCREEN NEGATIVE; URINE COCAINE SCREEN NEGATIVE; URINE MARIJUANA (THC) SCREEN UNCONFIRMED POSITIVE; URINE METHADONE SCREEN NEGATIVE; URINE PHENCYCLIDINE SCREEN NEGATIVE
[2019-03-18 12:22] LABS: ALANINE AMINOTRANSFERASE 17 U/L (9-52); ALKALINE PHOSPHATASE 75 U/L (38-126); ANION GAP 5 (5-19); ASPARTATE AMINO TRANSFERASE 10 U/L (14-36); BILIRUBIN,DIRECT 0.2 mg/dL (0.0-0.4); BILIRUBIN,TOTAL 0.2 mg/dL (0.2-1.3); BLOOD UREA NITROGEN 5 mg/dL (7-20); CALCIUM 9.1 mg/dL (8.4-10.2); CARBON DIOXIDE 30 mmol/L (22-30); CHLORIDE 102 mmol/L (98-107); GLUCOSE 319 mg/dL (75-110); POTASSIUM 3.5 mmol/L (3.6-5.0); SODIUM 136.9 mmol/L (137-145); TOTAL PROTEIN 5.3 g/dL (6.3-8.2)
--- NOTE | 2019-03-18 12:22 | RADIOLOGY REPORT (SQ) ---
EXAM DESCRIPTION: CT HEAD WITHOUT COMPLETED DATE/TIME: 03/18/2019 12:07 pm REASON FOR STUDY: unresponsive COMPARISON: CT brain 12/27/2011 TECHNIQUE: Axial images acquired through the brain without intravenous contrast. Images reviewed wi th bone, brain and subdural windows. Additional sagittal and coronal reconstructions were generated. Images stored on PACS. All CT scanners at this facility use dose modulation, iterative reconstruction, and/or weight based d osing when appropriate to reduce radiation dose to as low as reasonably achievable (ALARA). [facility]: Dose Right [facility]: CareDose [facility]: Dose Right [facility]: Teradose 4D [facility]: [employer] RADIATION DOSE: CT Rad equipment meets quality standard of care and radiation dose reduction techniq ues were employed. CTDIvol: 53.2 mGy. DLP: 991 mGy-cm. mGy. LIMITATIONS: None. FINDINGS: VENTRICLES: Normal size and contour. CEREBRUM: No CT evidence of acute large territory ischemic change, acute intracranial hemorrhage, mas s effect, or midline shift. 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 No hemorrhage. No alteration of density. No evidence for acute infarction. EXTRAAXIAL SPACES: No fluid collections. No masses. ORBITS AND GLOBE: No intra- or extraconal masses. Normal contour of globe without masses. CALVARIUM: No fracture. PARANASAL SINUSES: No fluid or mucosal thickening. SOFT TISSUES: No mass or hematoma. OTHER: No other significant finding. IMPRESSION: No acute findings EVIDENCE OF ACUTE STROKE: NO. COMMENT: Quality ID # [id number]: Final reports with documentation of one or more dose reduction techniques (e.g., Automated exposure control, adjustment of the mA and/or kV according to patient size, use of iterative reconstruction technique) TECHNICAL DOCUMENTATION: JOB ID: [id number] [facility]- All Rights Reserved Reading location - IP/workstation name: [email or web address]
[2019-03-18 12:23] LABS: ACETAMINOPHEN < 10 ug/mL (10-30); ALCOHOL < 10 mg/dL (NONE DETECTED); SALICYLATE < 1.0 mg/dL (2.0-20.0)
[2019-03-18] MEDS ORDERED: AMMONIA INHALANTS 10 AMPUL/BOX IH ONE ×2 (12:49)
[2019-03-18 14:16] VITALS: BP 139/88
--- NOTE | 2019-03-18 14:21 | PSYCHOLOGICAL NOTE ---
Psych Note - Psych Note Date seen by psych provider: 03/18/19 Time seen by psych provider: 12:30 Psych Note: Reason for Consult: Concern for AMS Patient is a 48-year-old female that presents to the emergency department for chief complaint of mental status change. Patient refuses to engage with clinician; her eyes remain closed, her mouth is wide open and snoring. She does not respond to any attempt by clinician to awaken. Attending physician noted similar difficulties and inconsistences in presentation: "She presented alert and then was more unresponsive and then became alert again. Patient's exam is now becoming inconsistent with structural process and I feel her altered mental status is psychogenic. At one point I tried to wake her with verbal stimuli and she did not respond, I then gently try tactile stimuli to her arm which she did not respond. When I placed my hand on her chest to attempt sternal rub she woke up immediately and was very alert. Patient seems to remember receiving sternal rub and did not desire to have that done again. After talking for a second she fell back asleep. I did wave ammonia in front of her nose and she woke up saying 'what the hell is that that smells horrible'." Patient was seen yesterday by this clinician and department and was discharged. The patient reported she planned to return home to [place] were she has a mental health team and support system. Patent's daughter in law was contacted and confirmed she was in route to brass pickler the patient. It is unclear why the patient did not leave for [place]. There is no evidence at this time the patient is having psychosis or AMS as she seems to have complete control over when she responds/"wakes up" and when she refuses to engage. It is noted the patient was not presenting with any concerns for AMS until [employer] was attempting to arrest her; per [employer] report upon initial arrival. Unspecified bipolar and related disorder per history provided by patient No medication recommendations at this time Impression\\plan: Patient is cleared from acute psychiatric services. Patient is demonstrating behaviors to achieve a secondary gain. Patient refuses to engage and presents as if altered or sleeping. Both clinician and attending physician note inconsistencies in presentation. Patient is personality challenged and trying to avoid going to detention and her behaviors are secondary to avoidance of consequences to previous poor life choices. Medication is not required his medications do not alter personality schema, rather intense outpatient CBT or DBT therapy does. Acute or inpatient psychiatric hospitalization is not appropriate treatment nor will it provide her with the help she requires, in fact it will only reinforce her poor behaviors and manipulation. Dr. Gr was consulted to care management of this patient; attending physicians in agreement with recommendations and disposition.
--- NOTE | 2019-03-18 18:31 | EKG REPORT ---
SEVERITY:- ABNORMAL ECG - SINUS RHYTHM NONSPECIFIC T ABNORMALITIES, LATERAL LEADS PROLONGED QT INTERVAL : Confirmed by: Ezequiel Billingsley 18-Mar-2019 18:30:19
== END 2019-03-18 14:43 | disposition home or self-care (01) ==
LOC: ER 11:11
DX: I95.89 Other hypotension (principal); R40.0 Somnolence; R46.89 Other symptoms and signs involving appearance and behavior; R53.1 Weakness; E78.00 Pure hypercholesterolemia, unspecified; I10 Essential (primary) hypertension; E11.9 Type 2 diabetes mellitus without complications; Z88.6 Allergy status to analgesic agent; Z91.010 Allergy to peanuts
CPT/HCPCS: 93005; 99285; 96361; 96374; 36415; 87040; 80177; 82962; 80307 ×4; 85025; 80053; 81001; 84484; 82803; 83605; 70450; 93010; J2310 ×2; J7030